=== PATIENT | female | born 1935 | race Two or more races ===

== ENCOUNTER 2018-07-12 21:03 | Emergency (ER) | payer OTHER ==
[~2018-07-12] VITALS: Ht 152.4 cm; Wt 66.2 kg
[~2018-07-12 21:03] MED LIST: ATENOLOL50 MG; CIPRO500 MG PO; CLEOCIN HCL300 MG PO; CLONAZEPAM0.5 MG; CRESTOR40 MG; DICLOFENAC SODI75 MG PO; FENOFIBRATE160 MG; FLAGYL500MG PO; GABAPENTIN600 MG; GLUCOPHAGE XR500 MG; GLUCOTROL10 MG PO; IMODIUM A-D2 MG PO; INTESTINEX680 MG PO; LEVOTHYROXINE75 MCG PO; MECLIZINE HCL25 MG; METFORMIN HCL500 MG; NEURONTIN300 MG PO; PAXIL20 MG; PEPCID20 MG PO; PROTONIX40 MG PO; SYNTHROID50 MCG; ZOFRAN4 MG PO; ZOLOFT50 MG
[2018-07-12] MEDS ORDERED: HYDROCHLOROTHIA25 MG (21:37)
[2018-07-12] MEDS ORDERED: VITAMIN D35000 UNI1 (21:38)
[2018-07-12] MEDS ORDERED: TRADJENTA5 MG (21:39)
[2018-07-12] MEDS ORDERED: CRESTOR40 MG (21:39)
[2018-07-12] MEDS ORDERED: ECOTRIN81 MG (21:40)
[2018-07-12] MEDS ORDERED: ANTIVERT (21:41)
[2018-07-12] MEDS ORDERED: NAMENDA10 MG (21:41)
[2018-07-12] MEDS ORDERED: OMEPRAZOLE40 MG (21:42)
== END 2018-07-12 23:47 | disposition home or self-care (01) ==
LOC: ER 21:03
DX: S42.292A Other displaced fracture of upper end of left humerus, initial encounter for closed fracture (principal); S80.02XA Contusion of left knee, initial encounter; M12.562 Traumatic arthropathy, left knee; M12.512 Traumatic arthropathy, left shoulder; W18.09XA Striking against other object with subsequent fall, initial encounter; Y93.89 Activity, other specified; Y92.018 Other place in single-family (private) house as the place of occurrence of the external cause; Y99.8 Other external cause status

== ENCOUNTER 2018-08-01 15:37 | Emergency (ER) | payer OTHER ==
[~2018-08-01] VITALS: Ht 152.4 cm; Wt 66.2 kg
[~2018-08-01 15:37] MED LIST changes: +ANTIVERT; +ECOTRIN81 MG; +HYDROCHLOROTHIA25 MG; +NAMENDA10 MG; +OMEPRAZOLE40 MG; +TRADJENTA5 MG; +VITAMIN D35000 UNI1
[2018-08-01] MEDS ORDERED: MUPIROCIN15 GM TOP (18:24)
[2018-08-01] MEDS ORDERED: ULTRACET PO (18:24)
== END 2018-08-01 18:29 | disposition home or self-care (01) ==
LOC: ER 15:37
DX: L89.622 Pressure ulcer of left heel, stage 2 (principal); L89.611 Pressure ulcer of right heel, stage 1

== ENCOUNTER 2021-12-02 15:00 | Emergency (ER) | payer OTHER ==
[~2021-12-02] VITALS: Ht 152.4 cm; Wt 66.2 kg
[~2021-12-02 15:00] MED LIST changes: +MUPIROCIN15 GM TOP; +ULTRACET PO
== END 2021-12-02 18:44 | disposition home or self-care (01) ==
LOC: ER 15:00
DX: M54.50 Low back pain, unspecified (principal); Z88.0 Allergy status to penicillin; Z88.8 Allergy status to other drugs, medicaments and biological substances

== ENCOUNTER 2022-05-06 16:09 | Emergency (ER) | payer OTHER ==
[~2022-05-06] VITALS: Ht 152.4 cm; Wt 66.2 kg
== END 2022-05-06 20:57 | disposition home or self-care (01) ==
LOC: ER 16:09
DX: T07.XXXA Unspecified multiple injuries, initial encounter (principal); W19.XXXA Unspecified fall, initial encounter; Y93.9 Activity, unspecified; Y92.9 Unspecified place or not applicable; Y99.9 Unspecified external cause status

== ENCOUNTER 2022-06-28 15:22 | Emergency (ER) | payer OTHER ==
[~2022-06-28] VITALS: Ht 157.5 cm; Wt 81.6 kg
[2022-06-28] MEDS ORDERED: NABUMETONE750 MG PO (19:21)
== END 2022-06-28 19:58 | disposition home or self-care (01) ==
LOC: ER 15:22
DX: S22.32XA Fracture of one rib, left side, initial encounter for closed fracture (principal); G30.9 Alzheimer's disease, unspecified; F02.80 Dementia in other diseases classified elsewhere, unspecified severity, without behavioral disturbance, psychotic disturbance, mood disturbance, and anxiety; Z88.0 Allergy status to penicillin; Z88.2 Allergy status to sulfonamides; W19.XXXA Unspecified fall, initial encounter; Y93.9 Activity, unspecified; Y92.9 Unspecified place or not applicable

== ENCOUNTER 2022-12-14 19:12 | Emergency (ER) | payer OTHER ==
[~2022-12-14] VITALS: Ht 154.9 cm; Wt 54.9 kg
[~2022-12-14 19:12] MED LIST changes: +NABUMETONE750 MG PO
[2022-12-14] MEDS ORDERED: SYNTHROID50 MCG PO (19:25)
[2022-12-14] MEDS ORDERED: TRADJENTA5 MG PO (19:26)
[2022-12-14] MEDS ORDERED: PRECOSE100 MG PO (19:27)
== END 2022-12-15 02:29 | disposition home or self-care (01) ==
LOC: ER 19:12
DX: S09.8XXA Other specified injuries of head, initial encounter (principal); W18.39XA Other fall on same level, initial encounter; Y93.9 Activity, unspecified; Y92.018 Other place in single-family (private) house as the place of occurrence of the external cause; R07.81 Pleurodynia; S14.13 Anterior cord syndrome of cervical spinal cord; Z88.0 Allergy status to penicillin; Z91.013 Allergy to seafood

== ENCOUNTER 2024-03-28 09:44 | Emergency (ER) | payer OTHER ==
[~2024-03-28] VITALS: Ht 152.4 cm; Wt 59.0 kg
[~2024-03-28 09:44] MED LIST changes: +PRECOSE100 MG PO; +SYNTHROID50 MCG PO; +TRADJENTA5 MG PO
[2024-03-28] MEDS ORDERED: BETIMOL5 ML (09:56)
[2024-03-28] MEDS ORDERED: RESTASIS1 EACH OP (09:56)
[2024-03-28] MEDS ORDERED: LUMIGAN2.5 M1 (09:57)
[2024-03-28] MEDS ORDERED: FISH OIL + D31 EACH PO (09:57)
[2024-03-28] MEDS ORDERED: DEXAMETHASONE SODIUM PHOSPHATE 4 MG/ML VIAL IM STA (10:26)
== END 2024-03-28 14:29 | disposition home or self-care (01) ==
LOC: ER 09:45
DX: S01.82XA Laceration with foreign body of other part of head, initial encounter (principal); W07.XXXA Fall from chair, initial encounter; Y93.89 Activity, other specified; Y92.098 Other place in other non-institutional residence as the place of occurrence of the external cause; Z88.0 Allergy status to penicillin; Z91.013 Allergy to seafood
CPT/HCPCS: 12001; 70450; 72125; 96372; 99284; J1100

== ENCOUNTER 2024-04-04 14:08 | Emergency (ER) | payer OTHER ==
[~2024-04-04] VITALS: Ht 152.4 cm; Wt 59.0 kg
[~2024-04-04 14:08] MED LIST changes: +BETIMOL5 ML; +FISH OIL + D31 EACH PO; +LUMIGAN2.5 M1; +RESTASIS1 EACH OP
[2024-04-04] MEDS ORDERED: IBU400 MG PO (19:28)
== END 2024-04-04 20:25 | disposition home or self-care (01) ==
LOC: ER 14:09
DX: S22.32XA Fracture of one rib, left side, initial encounter for closed fracture (principal); W19.XXXA Unspecified fall, initial encounter; Y93.89 Activity, other specified; Y92.89 Other specified places as the place of occurrence of the external cause; Y99.8 Other external cause status; Z88.0 Allergy status to penicillin; Z91.013 Allergy to seafood